=== PATIENT | female | born 1950 | race Caucasian/White ===

== ENCOUNTER 2019-01-09 13:41 | Emergency (ER) | payer OTHER ==
[~2019-01-09] VITALS: Ht 165.1 cm; Wt 83.0 kg
[2019-01-09] MEDS ORDERED: LISINOPRIL10 MG PO (13:55)
[2019-01-09 16:02] VITALS: BP 114/42
== END 2019-01-09 16:04 | disposition home or self-care (01) ==
LOC: ER 13:41
DX: M79.661 Pain in right lower leg (principal); Z96.651 Presence of right artificial knee joint; I10 Essential (primary) hypertension; F32.9 Major depressive disorder, single episode, unspecified